=== PATIENT | female | born 1955 | race Caucasian/White ===

== ENCOUNTER 2018-01-29 11:51 | Emergency (ER) | payer BC, MEDICARE ==
[~2018-01-29] VITALS: Ht 167.6 cm; Wt 83.9 kg
[~2018-01-29 11:51] MED LIST: ALBU8I INH; ATOR40TA PO; CETI10 PO; ENAL5TAB PO; ENAL5TAB38 PO; FE FCAP PO; FEMA2.5T PO; PERC5TAB12 PO; ZOFR8TAB4 PO
[2018-01-29 12:00] VITALS: BP 136/67; PULSE 88; RESP 16; TEMP 97.7; O2SAT 97
[2018-01-29] MEDS ORDERED: DENO120P SQ (12:15)
[2018-01-29] MEDS ORDERED: PALB100C PO (12:15)
[2018-01-29] MEDS ORDERED: CETI10CA3 PO (12:15)
[2018-01-29] MEDS ORDERED: LETR2.5T PO (12:15)
[2018-01-29] MEDS ORDERED: ATOR40TA16 PO (12:15)
--- NOTE | 2018-01-29 13:56 | PD ---
HPI Chief Complaint: Laceration/Skin Injury Time Seen by Provider: 12:49 Travel History International Travel<30 days: No Contact w/Intl Traveler<30days: No Traveled to known affect area: No History of Present Illness HPI 62-year-old female here with a laceration of the right index finger caused by kitchen knife prior to arrival. She reports normal sensation and full range of motion of the digit. He has mild pain at the site of the laceration. No aggravating or alleviating factors. Tetanus immunization is up-to-date. 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) Cardiovascular Problems: No High Cholesterol: Yes Chemotherapy: Yes (2002) COPD: Yes Diabetes: No Endocrine: No Genitourinary: No Hepatitis: Yes (from 1974 hep b) Hiatal Hernia: No Hypertension: Yes Immune Disorder: No Musculoskeletal: Yes (cancer of the bones hx of arthritis of the lower back) Neurologic: No Psychiatric: No Reproductive: Yes (uterine mass cyst on right ovary) Respiratory: Yes (poss copd) Immunizations Current: No Radiation Therapy: Yes (2002) Thyroid Disease: No Tetanus Vaccination: > 5 Years Influenza Vaccination: Yes ?: Not Tubal Ligation: Yes Past Surgical History Abdominal Surgery: Yes (lap levy) AICD: No Cholecystectomy: Yes Gynecologic Surgery: Yes (tubaligation) Hysterectomy: Yes Joint Replacement: No Mastectomy: Yes (R BREAST) Pacemaker: No Thoracic Surgery: Yes (mastectomy right breast) Other Surgery: Yes Social History Alcohol Use: No Tobacco Use: Yes (1PPD) Substance Use: No Allergies-Medications (Allergen,Severity, Reaction): Coded Allergies: No Known Allergies (Unverified , 04/05/16) Reported Meds & Prescriptions Reported Meds & Active Scripts Active Reported Xgeva Inj (Denosumab) 120 Mg/1.7 Ml (70 Mg/Ml) Inj 120 Mg SQ Q28D Zyrtec (Cetirizine HCl) 10 Mg Capsule 1 Tab PO DAILY Letrozole 2.5 Mg Tab 1 Tab PO HS Ibrance (Palbociclib) 100 Mg Capsule 1 Tab PO DAILY Atorvastatin (Atorvastatin Calcium) 40 Mg Tab 40 Mg PO HS Review of Systems Except as stated in HPI: all other systems reviewed are Neg General / Constitutional: No: Fever Eyes: No: Visual changes HENT: No: Headaches Cardiovascular: No: Chest Pain or Discomfort Respiratory: No: Shortness of Breath Gastrointestinal: No: Abdominal Pain Genitourinary: No: Dysuria Physical Exam Narrative GENERAL: Alert well-appearing 62-year-old female SKIN: Warm and dry. Laceration to the right index finger. HEAD: Normocephalic. EYES: No injection or drainage. NECK: Supple MUSCULOSKELETAL: No cyanosis, or edema. Right hand: 1.5 linear centimeter laceration to the right index finger over the medial aspect of the proximal phalanx. No tendon or vascular injury identified. Patient is able to flex and extend the digit. Normal sensation. Brisk cap refill. Data Data Last Documented VS Vital Signs Date Time Temp Pulse Resp B/P (MAP) Pulse Ox O2 Delivery O2 Flow Rate FiO2 01/29/18 12:00 97.7 88 16 136/67 (90) 97 Orders Orders Tetanus/Diphtheria Tox Adult (Tetanus/Di (01/29/18 14:00) Ed Discharge Order (01/29/18 14:02) MDM Medical Decision Making Medical Screen Exam Complete: Yes Emergency Medical Condition: Yes Differential Diagnosis Finger laceration, tendon injury, ligamental injury Narrative Course 62-year-old female with a laceration to the right index finger caused by a kitchen knife. No tendon or vascular injury suspected. She has normal sensation and full range of motion. Laceration repair performed. Patient tolerated procedure well. Procedures Procedure Narrative LACERATION LOCATION: Right index finger LENGTH: 1.5 CM NUMBER OF STITCHES/GRICELDA: 5 REPAIR: The area of the laceration was prepped with Betadine and sterilely draped. Digital block performed using 1% lidocaine. The wound was copiously irrigated and explored without evidence of foreign body, tendon injury or neurovascular injury. The wound was closed using 4-0 Ethilon. This was a [single] layer repair. A sterile dressing was applied. The patient was advised to keep the dressing clean and dry. Patient tolerated the procedure well. Diagnosis Primary Impression: Finger laceration Qualified Codes: S61.210A - Laceration without foreign body of right index finger without damage to nail, initial encounter Referrals: Primary Care Physician Additional Instructions: Sutures need to be removed in 7-10 days. Do not submerge the wound in water. Return if he developed new or worsening symptoms Disposition: 01 DISCHARGE HOME Condition: Stable Jennifer Marie Jan 29, 2018 13:56
[2018-01-29] MEDS ORDERED: TETANUS/DIPHTHERIA TOXOID ADULT 0.5 ML VIAL IM ONE (14:00)
== END 2018-01-29 14:18 | disposition home or self-care (01) ==
LOC: PHEFT 11:51
DX: S61.210A Laceration without foreign body of right index finger without damage to nail, initial encounter (principal); F17.200 Nicotine dependence, unspecified, uncomplicated; E78.00 Pure hypercholesterolemia, unspecified; W26.0XXA Contact with knife, initial encounter; Z23 Encounter for immunization
CPT/HCPCS: 12001; 90471; 90714